=== PATIENT | female | born 1930 | race Caucasian/White ===

== ENCOUNTER 2017-11-08 15:37 | Inpatient (IN) ==
--- NOTE | 2017-11-08 17:58 | ED ---
HPI General Chief complaint: Extremity Injury, Lower Stated complaint: hip pain/dr sent Time Seen by Provider: 11/08/17 17:39 Source: patient, family and old records reviewed Mode of arrival: wheelchair Limitations: no limitations History of Present Illness HPI narrative: 87-year-old female presents to the emergency department with her daughter at bedside. According to daughter, the patient was seen at Dr. Zapata' s office today and was referred to the emergency department. She is to have revision of a left hip surgery tomorrow morning. The daughter, she has had increasing pain and difficulty ambulating. She went to Dr. Zapata today and he stated that the sil in the hip was broken she needed to have surgery. She does have history of hypertension, rheumatoid arthritis, mitral valve prolapse. She is not on anticoagulants and has no bleeding disorders. The patient reports 10/ 10 pain to the right hip, worse with movement. No alleviating factors. She denies any recent trauma. Moderate severity. Onset (ago): week(s) Location: lower extremity Radiation: non-radiation Severity: moderate Severity scale (1-10): 10 Quality: aching Pain Consistency: constant Relieving factors: immobilization Exacerbating factors: movement Associated symptoms: denies other symptoms Treatments prior to arrival: other (on Lortab for pain) Related Data Home Medications Medication Instructions Recorded Confirmed Unable to Obtain Home Meds 11/08/17 11/08/17 Allergies Allergy/AdvReac Type Severity Reaction Status Date / Time cephalexin Allergy Severe Swelling Verified 11/08/17 19:34 penicillin G Allergy Severe Swelling Verified 11/08/17 19:34 Review of Systems ROS Unobtainable All other systems reviewed negative except as stated in HPI PMFSH Medical History Medical History Medical history unknown (Acute) Surgical history unknown (Acute) Social History Social History Second Hand Smoke Exposure: No Smoking Status: Never smoker How Often Do You Have a Drink Containing Alcohol: Never Recent Travel in [place] within the Last 8 Weeks: No Recent Out of Country Travel within the Last 8 Weeks: No Exam Narrative Exam Narrative: GENERAL: Well-nourished, well-developed elderly female patient, afebrile. SKIN: Focused skin assessment warm/dry. No lacerations or abrasions. HEAD: Normocephalic. Atraumatic. EYES: No scleral icterus. No injection or drainage. NECK: Supple, trachea midline. No JVD or lymphadenopathy. CARDIOVASCULAR: Regular rate and rhythm without murmurs, gallops, or rubs. Bilateral pedal pulses 2+ RESPIRATORY: Breath sounds equal bilaterally. No accessory muscle use. Lung sounds are clear to auscultation GASTROINTESTINAL: Abdomen soft, non-tender, nondistended. MUSCULOSKELETAL: No cyanosis, or edema. Right leg is shortened, tenderenss over right hip BACK: No obvious deformity. Course Initial Documented Vital Signs Temperature 98.5 F 11/08/17 16:16 Pulse Rate 58 L 11/08/17 16:16 Respiratory Rate 16 11/08/17 16:16 Blood Pressure 147/65 H 11/08/17 16:16 Pulse Oximetry 96 11/08/17 16:16 Last Documented Vital Signs Temperature 98.5 F 11/08/17 16:16 Pulse Rate 66 11/08/17 19:00 Respiratory Rate 16 11/08/17 19:00 Blood Pressure 178/82 H 11/08/17 19:00 Pulse Oximetry 100 11/08/17 19:00 Medical Decision Making [facility] Narrative Medical decision making narrative: 87 year old female presents to the emergency department, sent by Dr. Zapata, for surgery tomorrow. IV access is obtained. EKG,CBC, CMP, PTT, PT/INR, chest x-ray, x-ray of the right hip with pelvis are ordered and pending. EKG shows sinus bradycardia with PVCs, heart rate 56. CBC shows hgb of 9.9, hct of 31.7. CMP shows bun 33, creatinine of 1.14. PTT is 23.1. PT/INR is 10.7/1.1. Chest x-ray shows mild left base atelectasis and/or infiltrate and tiny effusion. X-ray of the right hip with pelvis shows nonacute subcapital fracture of the right femoral neck and with protruding trochanteric nail tip. Dr. Zapata was notified. He would like pre op labs and cxr to be done before patient is admitted. Patient is to be admitted to hosptalist and npo p ak. Hospitalist is paged for admission. Dr. Baker accepted admission. Differential Diagnosis Differential Diagnosis: fracture of hardware vs. right hip fracture vs. chronic hip pain Lab Data Result diagrams: 11/08/17 18:45 11/08/17 18:45 Lab Results 0711/08/17 11/08/17 Range/Units 18:45 18:45 18:45 WBC 8.7 (4.0-11.0) th/mm3 RBC 3.60 L (4.00-5.30) mil/mm3 Hgb 9.9 L (11.6-15.3) gm/dL Hct 31.7 L (35.0-46.0) % MCV 88.1 (80.0-100.0) fL MCH 27.5 (27.0-34.0) pg MCHC 31.2 L (32.0-36.0) % RDW 21.4 H (11.6-17.2) % Plt Count 292 (150-450) th/mm3 MPV 7.9 (7.0-11.0) fL Neut % (Auto) 75.4 H (16.0-70.0) % Lymph % (Auto) 18.8 (9.0-44.0) % Antelope % (Auto) 5.0 (0.0-8.0) % Eos % (Auto) 0.3 (0.0-4.0) % Baso % (Auto) 0.5 (0.0-2.0) % Neut # (Auto) 6.6 (1.8-7.7) th/mm3 Lymph # (Auto) 1.6 (1.0-4.8) th/mm3 Antelope # (Auto) 0.4 (0.0-0.9) th/mm3 Eos # (Auto) 0.0 (0.0-0.4) th/mm3 Baso # (Auto) 0.0 (0.0-0.2) th/mm3 WBC Differential . Differential Comment Auto diff final PT 10.7 (9.8-11.6) sec INR 1.1 Ratio APTT 23.1 L (24.3-30.1) sec Sodium 137 (136-145) meq/L Potassium 4.2 (3.5-5.1) meq/L Chloride 107 (98-107) meq/L Carbon Dioxide 20.8 L (21.0-32.0) meq/L Anion Gap 9 (5-15) meq/L BUN 33 H (7-18) mg/dL Creatinine 1.14 H (0.50-1.00) mg/dL Estimated GFR 45 L (>89) mL/min Random Glucose 102 (74-106) mg/dL Calcium 9.3 (8.5-10.1) mg/dL Total Bilirubin 0.2 (0.2-1.0) mg/dL AST 27 (15-37) U/L ALT 33 (10-53) U/L Alkaline Phosphatase 87 (45-117) U/L Total Protein 6.7 (6.4-8.2) g/dL Albumin 3.1 L (3.4-5.0) g/dL Imaging Data Radiologist's impression: ITS Impressions Chest X-Ray 11/08/17 17:49 CONCLUSION: Mild consolidation and tiny effusion at the left lung base. Hip X-Ray 11/08/17 18:51 CONCLUSION: Nonacute subcapital fracture of the right femoral neck and with protruding trochanteric nail tip. Discharge Plan Discharge Disposition Patient Disposition: 30 Still Patient Discharge Details Diagnosis: Closed subcapital fracture of femur Physicians Team ED Provider: Naresh Loja ED Midlevel Provider: Loyda Noguera Primary Care Provider: Venancio Bautista Rxs /Orders / Referrals /Forms Prescriptions: No Action Unable to Obtain Home Meds RF: 0 Status ED Status: With Doctor
--- NOTE | 2017-11-08 18:57 | XR ---
EXAM DATE: 11/08/2017 6:49 PM EDT AGE/SEX: 87 years / Female INDICATIONS: Evaluate for pneumonia, pneumothorax, or communicable diseases. CLINICAL DATA: This is the patient's initial encounter. Patient reports that signs and symptoms have been present for 1 day and indicates a pain score of 0/10. MEDICAL/SURGICAL HISTORY: None. None. COMPARISON: No prior exams available for comparison. FINDINGS: There is mild left base atelectasis and/or infiltrate and tiny effusion. Right lung clear. No pneumot horax. Calcified lymph nodes and right base benign granuloma noted. Normal heart size. CONCLUSION: Mild consolidation and tiny effusion at the left lung base. Electronically signed by: Fox Walter MD 11/08/2017 6:56 PM EDT
--- NOTE | 2017-11-08 19:08 | XR ---
EXAM DATE: 11/08/2017 7:02 PM EDT AGE/SEX: 87 years / Female INDICATIONS: Patient complains of right hip pain. No known injury. CLINICAL DATA: This is the patient's initial encounter. Patient reports that signs and symptoms have been present for 1 day and indicates a pain score of 4/10. MEDICAL/SURGICAL HISTORY: None. . Right hip ORIF. COMPARISON: No prior exams available for comparison. FINDINGS: Patient has had previous nail and sil fixation of a right intertrochanteric fracture. Femoral head ryan s slipped off of the trochanteric nail. The tip of the nail is near the superior margin of the acetab ulum and with some associated chronic bony remodeling. The hardware is intact. CONCLUSION: Nonacute subcapital fracture of the right femoral neck and with protruding trochanteric nail tip. Electronically signed by: Fox Walter MD 11/08/2017 7:07 PM EDT
[2017-11-08 19:39] LABS: Baso % (Auto) 0.5 % (0.0-2.0); Eos % (Auto) 0.3 % (0.0-4.0); Hematocrit 31.7 % (35.0-46.0); Hemoglobin 9.9 gm/dL (11.6-15.3); Lymph # (Auto) 1.6 th/mm3 (1.0-4.8); Lymph % (Auto) 18.8 % (9.0-44.0); Mean Corpuscular HGB Conc 31.2 % (32.0-36.0); Mean Corpuscular Hemoglobin 27.5 pg (27.0-34.0); Mean Corpuscular Volume 88.1 fL (80.0-100.0); Mean Platelet Volume 7.9 fL (7.0-11.0); Mono # (Auto) 0.4 th/mm3 (0.0-0.9); Neut # (Auto) 6.6 th/mm3 (1.8-7.7); Neut % (Auto) 75.4 % (16.0-70.0); Platelet Count 292 th/mm3 (150-450); Red Cell Distribution Width 21.4 % (11.6-17.2); White Blood Count 8.7 th/mm3 (4.0-11.0)
[2017-11-08 19:49] LABS: Activated Partial Thrombo Time 23.1 sec (24.3-30.1); INR 1.1 Ratio; Prothrombin Time 10.7 sec (9.8-11.6)
[2017-11-08 20:00] LABS: Albumin 3.1 g/dL (3.4-5.0); Anion Gap 9 meq/L (5-15); Aspartate Aminotransferase 27 U/L (15-37); Blood Urea Nitrogen 33 mg/dL (7-18); Calcium 9.3 mg/dL (8.5-10.1); Carbon Dioxide 20.8 meq/L (21.0-32.0); Chloride 107 meq/L (98-107); Glomerular Filtration Rate 45 mL/min (>89); Glucose,Random 102 mg/dL (74-106); Potassium 4.2 meq/L (3.5-5.1); Sodium 137 meq/L (136-145)
[2017-11-08 20:01] LABS: Alanine Aminotransferase 33 U/L (10-53)
[2017-11-08 20:03] LABS: Alkaline Phosphatase 87 U/L (45-117); Total Protein 6.7 g/dL (6.4-8.2)
--- NOTE | 2017-11-08 21:14 | ECG ---
Date Performed: 11/08/2017 Time Performed: 18:46:31 PTAGE: 87 years EKG: SINUS BRADYCARDIA WITH FREQUENT VENTRICULAR PREMATURE COMPLEXES ABNORMAL RHYTHM ECG Compare d to prior electrocardiogram, PVCs are now present. DOCTOR: Ugo Marie Interpretating Date/Time 11/08/2017 21:12:19
[2017-11-08] MEDS ORDERED: Acetaminophen 325 MG Tablet PO PRN (22:30)
[2017-11-08] MEDS ORDERED: Morphine Inj 4 MG/ML Vial IV.PUSH PRN (22:30)
[2017-11-08] MEDS ORDERED: Naloxone Inj 0.4 MG/ML Vial IV.PUSH PRN (22:30)
[2017-11-09] MEDS ORDERED: Docusate Sodium 100 MG Capsule PO PRN (08:12)
[2017-11-09] MEDS ORDERED: Naloxone Inj 0.4 MG/ML Vial IV.PUSH PRN (08:14)
[2017-11-09] MEDS: Senna/Docusate Sodium 8.6/50 MG Tablet PO SCH (09:14)
[2017-11-09] MEDS ORDERED: Dexamethasone Inj 20 MG/5 ML Vial IV.PUSH SCH (10:53)
[2017-11-09] MEDS ORDERED: Vancomycin Inj 1 GM/200 ML PIGGYBACK IV.SIG SCH (11:00)
[2017-11-09] MEDS ORDERED: SODIUM CHLOR 0.9% IV.SIG SCH (11:00)
[2017-11-09] MEDS ORDERED: TRANEXAMIC ACID IV.SIG SCH (11:00)
[2017-11-09] MEDS ORDERED: Sodium Chlor 0.9% Inj 40 ML, Bupivacaine Liposo PF 1.3% Inj 20 ML P-ARTICULR SCH ×2 (11:00)
[2017-11-09] MEDS ORDERED: Chlorhexidine 4% Topical 120 APPLIC/120 ML Bottle TOPICAL SCH (11:00)
[2017-11-09] MEDS ORDERED: Ketamine Inj 50 MG/5 ML Syringe IV.PUSH ONE (11:23)
[2017-11-09] MEDS ORDERED: ceFAZolin 2 GM Premix Inj 2 GM/50 ML PIGGYBACK IV.SIG ONE (12:01)
[2017-11-09] MEDS ORDERED: Albumin Human 25% Inj 100 ML IV.SIG ONE (12:39)
[2017-11-09] MEDS ORDERED: Chlorhexidine Gluconate 2% 1 Pack (2 Cloths) TOPICAL SCH (12:45)
[2017-11-09] MEDS ORDERED: Metoprolol Tartrate 25 MG Tablet PO SCH (12:45)
[2017-11-09] MEDS ORDERED: Sodium Chlor 0.9% Inj 500 ML IV.SIG SCH (13:00)
[2017-11-09] MEDS ORDERED: Morphine Inj 4 MG/ML Vial IV.PUSH PRN (14:08)
[2017-11-09] MEDS ORDERED: Aluminum/Magnesium/Simethacone Susp 30 ML UDC PO PRN (14:08)
[2017-11-09] MEDS ORDERED: Post-op Orders (for Pharmacy) OTHER STA (14:08)
--- NOTE | 2017-11-09 14:20 | P.OP ---
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 My BOTTOM HOOP DRIVER presence was necessary throughout this case for the manipulation and positioning of the surgical extremity. My BOTTOM HOOP DRIVER was assisting me throughout the duration of this procedure. The skill set of an Advance Registered Nurse Practitioner was medically necessary to complete this procedure. During the surgical case, the surgical services manager was working at the back table and the Advance Registered Nurse Practitioner was directly assisting me. Estimated blood loss (mL): 400 Operation and Findings: IMPLANT DESCRIPTION: 1. Langeloth Gription Cup, acetabular size 48. 2. Langeloth AltrX polyethylene +4, 10 degree, 32. 4. Corail revision long femoral stem size 10, no collar, standard offset. 5. Femoral head/neck metal, 32, +1. ESTIMATED BLOOD LOSS: 400 cc. JUSTIFICATION FOR PROCEDURE: This patient had a failed intramedullary nail fixation of a femoral neck/ basicervical fracture. There was displacement of the fracture with the screw eroding into the acetabulum. She understood the risks and benefits of surgical management. She was admitted to the hospital yesterday and had preoperative clearance. We are going to move forward with removal of all of the hardware with conversion of previous surgery to total hip arthroplasty. PROCEDURE: The patient was brought back to the operative theatre. Adequate anesthesia was obtained. The patient received intravenous vancomycin and Ancef. Note the patient had a test dose of Ancef and did not have a reaction. The patient was carefully placed on the operative table in the lateral decubitus position with an axillary roll and a well-padded down leg. The lower extremity was prepped and draped in the usual sterile fashion. We proceeded with a standard curvilinear incision centered around the tip of the greater trochanter. We extended this incision a little more distal than typical. We then dissected through the deep fascia and placed a Charnley retractor protecting the sciatic nerve. The greater trochanteric bursa was reflected. We then incised through the piriformis attachment and tagged this with a #2 FiberWire. We then incised through the capsule in a T-shaped fashion and tagged this with a #2 FiberWire as well. We identified the proximal aspect of the nail by reflecting the deep capsular region over the top of the nail. We were careful to not disturb the abductor tendons. We identified the lateral portion of the screw that was going into the femoral head. We backed off the set screw proximally. We then removed the lag screw without problem. We removed the locking screw distally in the femoral shaft. We then removed the intramedullary device without problem. We did not see any signs of infection. We thoroughly irrigated. The hardware did not have specific failure. The failure was at the femoral neck. We identified displaced nonhealed femoral neck fracture. We removed remnants of the neck. There was no significant remaining calcar. The lesser trochanter was intact. We did see when she will white bring into the acetabulum from the screw. This was of a mild to moderate degree in the superior aspect. There was some other diffuse chondromalacia. The remnants of the labrum were removed. We then sequentially reamed the acetabulum. We trialed the hip. We placed the final cup into the appropriate inclination and anteversion. We placed the manhole cover. We then placed the polyethylene with the elevated liner in the posterior superior aspect. The proximal femur was prepared with with a rondure and then we did first hand reaming into the shaft. This was followed by placing a ball-tipped guidewire down to the distal end of the femur and then sequentially reaming up to a size 13. We then broached the proximal body. We calcar planed the proximal femur and irrigated removing any remnants of the bone. We trialed the hip with the longer revision corail stem broach in place. The final femoral stem was impacted into position. We used the rotation of the leg to help determine the appropriate rotation for the final prosthesis. The final prosthesis was a collared prosthesis. Leg lengths were evaluated. We evaluated stability of the hip with the hip in the "position of sleep" and the hip flexed up to 90 and internally rotated. We additionally tested both a "shuck" test and hip extension, confirming there was no undue tension while flexing the knee to 90 during full hip extension. The final stem had very good fit with no sign of instability. The final head was impacted and the hip was reduced. Once again we irrigated. We then repaired the capsule and the piriformis with the FiberWire suture. The deep fascia was closed with a #2 Stratafix, followed by 2-0 Vicryl in the skin and lizandro. The post-op plan is to weight-bear as tolerated. We will follow posterior total hip precautions, including the use of a canvas knee splint. DVT prophylaxis will be performed with SCDs, SANTI hose, early mobilization, and Lovenox followed by aspirin.
[2017-11-09] MEDS ORDERED: fentaNYL Citrate Inj 100 MCG/2 ML Ampul ONE (14:43)
[2017-11-09] MEDS ORDERED: Morphine Inj 4 MG/ML Vial ONE (14:44)
[2017-11-09] MEDS ORDERED: Tranexamic Acid Inj 1,000 MG in Sodium Chlor 0.9% Inj 100 ML IV.SIG SCH (15:00)
[2017-11-09] MEDS: Sod Chloride 0.9% Inj 1,000 ML IV.CONT SCH (15:42)
--- NOTE | 2017-11-09 16:09 | XR ---
EXAM DATE: 11/09/2017 3:53 PM EDT AGE/SEX: 87 years / Female INDICATIONS: Rt Hip ORIF. Post-op. CLINICAL DATA: This is the patient's subsequent encounter. Patient reports that signs and symptoms h ave been present for 2 days and indicates a pain score of Nonresponsive. MEDICAL/SURGICAL HISTORY: None. . RT Hip ORIF. COMPARISON: [facility], HIP RIGHT W AP PELVIS 2V, 11/08/2017. . FINDINGS: Right hip arthroplasty is in satisfactory position. The alignment is anatomic. CONCLUSION: Postsurgical changes as above. Electronically signed by: Jay Briseno MD 11/09/2017 4:08 PM EDT
--- NOTE | 2017-11-09 16:56 | P.HP ---
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 She has been complaining of right hip pain especially with activity and difficulty ambulating since she had surgery in March 2017. No recent fall. She was seen by her orthopedist yesterday and was referred to the emergency department for surgical repair. She underwent right hip removal of implant deep open (intramedullary nail and screw) with conversion of previous surgery to total hip arthroplasty. Patient is seen in the recovery room, she is awake. She has early dementia and hard of hearing so history mainly taken from her daughter. Discussed with recovery room nurse, patient has been hemodynamically stable received 1350 mL crystalloid and EBL of 400 mL. All other systems reviewed negative Inpatient Certification: I certify that the inpatient services were ordered in accordance with Medicare regulations governing the order. This includes certification that hospital inpatient services are reasonable and necessary and in the case of services not specified as inpatient-only under 42 CFR 419.22(n), that they are appropriately provided as inpatient services in accordance to with the 2-midnight benchmark under 43 CFR 412.3(e) Estimated Total Length of Stay (Days): 3 Plans for Post Hospital Care: SNF Review of Systems All other systems reviewed negative except as stated in HPI PMFSH - History History Provided By: Patient, Family Member - Medical History Medical History: Medical History (Last Updated 11/09/17 @ 16:55 by Tushar Oliveira MD) Cervical vertebral fusion (Acute) Hx of hysterectomy (Acute) Rheumatoid arthritis (Acute) Depression (Acute) Anxiety (Acute) Hypertension (Acute) Mitral regurgitation - Surgical History Surgical History: Surgical History (Last Updated 11/09/17 @ 16:44 by Tushar Oliveira MD) Hx of joint replacement (Acute) History of total right hip replacement (Acute) Hx of appendectomy (Acute) - Family History Family History: Family History (Last Updated 11/09/17 @ 16:45 by Tushar Oliveira MD) Other Family history non-contributory - Tobacco History Second Hand Smoke Exposure: No Smoking Status: Never smoker - Alcohol History How Often Do You Have a Drink Containing Alcohol: Never - Substance Use History Substance History: No History of Abuse - Travel History Recent Travel in the [place] Within the Last 8 Weeks: No Recent Travel Out of the Country Within the Last 8 Weeks: No - Immunization History Tetanus Immunization: Unable to Assess Hx Influenza Vaccine This Season: Unable to Assess Medications and Allergies Allergies Allergy/AdvReac Type Severity Reaction Status Date / Time cephalexin Allergy Severe Swelling Verified 11/08/17 19:34 penicillin G Allergy Severe Swelling Verified 11/08/17 19:34 Home Medications Medication Instructions Recorded Confirmed Type Unable to Obtain Home Meds 11/08/17 11/08/17 History Exam Vital signs: Vital Signs 11/08/17 19:00 11/08/17 21:00 11/08/17 22:59 Temperature Pulse Rate 66 62 Respiratory Rate 16 16 16 Blood Pressure 178/82 H 179/79 H Pulse Oximetry 100 98 11/09/17 00:00 11/09/17 06:43 11/09/17 07:00 Temperature 97.3 F L 97.9 F Pulse Rate 55 L 54 L Respiratory Rate 16 18 18 Blood Pressure 182/79 H 135/62 Pulse Oximetry 95 95 11/09/17 08:00 11/09/17 14:37 11/09/17 14:45 Temperature 98.1 F 97.6 F Pulse Rate 55 L 90 84 Respiratory Rate 18 14 14 Blood Pressure 144/65 H 108/52 L 99/46 L Pulse Oximetry 98 99 99 11/09/17 15:00 11/09/17 15:15 11/09/17 15:30 Temperature Pulse Rate 80 100 H 88 Respiratory Rate 14 14 14 Blood Pressure 87/46 L 125/58 L 110/53 L Pulse Oximetry 97 98 98 11/09/17 15:45 Temperature Pulse Rate 100 H Respiratory Rate 14 Blood Pressure 104/55 L Pulse Oximetry 98 Intake & Output 11/08/17 11/09/17 11/09/17 18:59 06:59 18:59 Intake Total 0 / 0 2300 / 2300 Output Total 0 / 0 400 / 400 Balance 0 / 0 1900 / 1900 Weight 43.091 kg 42.2 kg Intake: IV 1000 / 1000 LR 1000 mL Inj 1,000 ML @ 50 1000 / 1000 mls/hr IV.CONT .Q20H [facility] Rx#: [id number] Oral 0 / 0 Anesthesia Amount 1300 / 1300 Output: Urine 0 / 0 Estimated Blood Loss 400 / 400 Other: # Voids 1 Weight On Admission 42.2 kg Narrative: GENERAL: Well-developed and well-nourished in no distress. She is hard of hearing SKIN: Warm and dry. HEAD: Atraumatic. Normocephalic. EYES: Pupils equal and round. No scleral icterus. No injection or drainage. ENT: No nasal bleeding or discharge. Mucous membranes pink and moist. NECK: Trachea midline. No JVD. CARDIOVASCULAR: Regular rate and rhythm. RESPIRATORY: No accessory muscle use. Clear to auscultation. Breath sounds equal bilaterally. GASTROINTESTINAL: Abdomen soft, non-tender, nondistended. MUSCULOSKELETAL: Right lower extremity in a immobilizer. NEUROLOGICAL: Awake and alert. No obvious cranial nerve deficits. Results - Labs CBC & Chem 7: 11/08/17 18:45 11/08/17 18:45 Labs: Laboratory Results - last 24 hr 11/08/17 11/08/17 11/08/17 18:45 18:45 18:45 WBC 8.7 RBC 3.60 L Hgb 9.9 L Hct 31.7 L MCV 88.1 MCH 27.5 MCHC 31.2 L RDW 21.4 H Plt Count 292 MPV 7.9 Neut % (Auto) 75.4 H Lymph % (Auto) 18.8 Valencia % (Auto) 5.0 Eos % (Auto) 0.3 Baso % (Auto) 0.5 Neut # (Auto) 6.6 Lymph # (Auto) 1.6 [place] # (Auto) 0.4 Eos # (Auto) 0.0 Baso # (Auto) 0.0 WBC Differential . Differential Comment Auto diff final PT 10.7 INR 1.1 APTT 23.1 L Sodium 137 Potassium 4.2 Chloride 107 Carbon Dioxide 20.8 L Anion Gap 9 BUN 33 H Creatinine 1.14 H Estimated GFR 45 L Random Glucose 102 Calcium 9.3 Total Bilirubin 0.2 AST 27 ALT 33 Alkaline Phosphatase 87 Total Protein 6.7 Albumin 3.1 L Blood Type Antibody Screen 11/09/17 11:32 WBC RBC Hgb Hct MCV MCH MCHC RDW Plt Count MPV Neut % (Auto) Lymph % (Auto) Valencia % (Auto) Eos % (Auto) Baso % (Auto) Neut # (Auto) Lymph # (Auto) Valencia # (Auto) Eos # (Auto) Baso # (Auto) WBC Differential Differential Comment PT INR APTT Sodium Potassium Chloride Carbon Dioxide Anion Gap BUN Creatinine Estimated GFR Random Glucose Calcium Total Bilirubin AST ALT Alkaline Phosphatase Total Protein Albumin Blood Type A Positive Antibody Screen Negative - Imaging Impressions Chest X-Ray 11/08/17 17:49 CONCLUSION: Mild consolidation and tiny effusion at the left lung base. Hip X-Ray 11/08/17 18:51 CONCLUSION: Nonacute subcapital fracture of the right femoral neck and with protruding trochanteric nail tip. Hip X-Ray 11/09/17 00:00 CONCLUSION: Postsurgical changes as above. Caprini VTE Risk Assessment Caprini VTE Risk Assessment: Moderate/High Risk (score >= 2) Caprini Risk Assessment Model: Point Value = 1 Point Value = 2 Point Value = 3 Point Value = 5 Age 41-60 Minor surgery BMI > 25 kg/m2 Swollen legs Varicose veins or History of unexplained or recurrent spontaneous Oral contraceptives or hormone replacement Sepsis (< 1 month) Serious lung disease, including pneumonia (< 1 month) Abnormal pulmonary function Acute myocardial infarction Congestive heart failure (< 1 month) History of inflammatory bowel disease Medical patient at bed rest Age 61-74 Arthroscopic surgery Major open surgery (> 45 min) Laparoscopic surgery (> 45 min) Malignancy Confined to bed (> 72 hours) Immobilizing plaster cast Central venous access Age >= 75 History of VTE Family history of VTE Factor V Leiden Prothrombin [id number] Lupus anticoagulant Anticardiolipin antibodies Elevated serum homocysteine Heparin-induced thrombocytopenia Other congenital or acquired thrombophilia Stroke (< 1 month) Elective arthroplasty Hip, pelvis, or leg fracture Acute spinal cord injury (< 1 month) Prophylaxis Regimen: Total Risk Factor Score Risk Level Prophylaxis Regimen 0-1 Low Early ambulation 2 Moderate Order ONE of the following: *Sequential Compression Device (SCD) *Heparin 5000 units SQ BID 3-4 Higher Order ONE of the following medications: *Heparin 5000 units SQ TID *Enoxaparin/Lovenox 40 mg SQ daily (WT < 150 kg, CrCl > 30 mL/min) *Enoxaparin/Lovenox 30 mg SQ daily (WT < 150 kg, CrCl > 10-29 mL/min) *Enoxaparin/Lovenox 30 mg SQ BID (WT < 150 kg, CrCl > 30 mL/min) AND/OR *Sequential Compression Device (SCD) 5 or more Highest Order ONE of the following medications: *Heparin 5000 units SQ TID (Preferred with Epidurals) *Enoxaparin/Lovenox 40 mg SQ daily (WT < 150 kg, CrCl > 30 mL/min) *Enoxaparin/Lovenox 30 mg SQ daily (WT < 150 kg, CrCl > 10-29 mL/min) *Enoxaparin/Lovenox 30 mg SQ BID (WT < 150 kg, CrCl > 30 mL/min) AND *Sequential Compression Device (SCD) Assessment and Plan - Plan This is a 87-year-old female with a 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 Patient is stable continue postoperative care with physical therapy, wound care, DVT prophylaxis with Lovenox, incentive spirometry and pain management with Lortab and IV morphine. Repeat CBC in the morning to monitor for postoperative anemia. She has baseline anemia hemoglobin of 9.9 Hypertension. EKG tracing interpreted by me with sinus bradycardia with PVC. Stable continue home medications when confirmed, daughter is not able to recall patient's medication. Meanwhile will give as needed IV Vasotec and clonidine Anxiety and depression. Restart home medication once confirmed. Nursing staff instructed to verify home meds Rheumatoid arthritis. Again restart home medications but will hold Humira and methotrexate for now. She also has dementia and hard of hearing which makes communication difficult. Chronic kidney disease. Avoid nephrotoxins. Currently on IV fluids. Repeat BMP in the morning Discharge Planning: Rehab versus home health care
--- NOTE | 2017-11-09 17:08 | P.PNADD ---
Addendum to Inpatient Note Reason for Addendum: Corrected Documentation (CXR with left base mild consolidation and tiny effusion. No resp sxs. IS and nebs likely atelectasis monitor for infection)
[2017-11-09] MEDS ORDERED: Lidocaine PF 1% Inj 5 ML Syringe INFILTRATN ONE (17:59)
[2017-11-09] MEDS ORDERED: Neostigmine Inj 5 MG/5 ML Syringe IV.PUSH ONE (17:59)
[2017-11-09] MEDS ORDERED: Phenylephrine/NS 1000 MCG/10ML Syringe IV.PUSH ONE (17:59)
[2017-11-09] MEDS ORDERED: hydrALAZINE HCl Inj 20 MG/ML Vial IV.PUSH ONE (17:59)
[2017-11-09] MEDS ORDERED: Glycopyrrolate Inj 1 MG/5 ML Syringe IV.PUSH ONE (17:59)
[2017-11-10 05:14] LABS: Hematocrit 22.4 % (35.0-46.0); Hemoglobin 7.2 gm/dL (11.6-15.3)
[2017-11-10] MEDS: Senna/Docusate Sodium 8.6/50 MG Tablet PO SCH ×3 (05:19→23:59)
[2017-11-10] MEDS: Multivitamin/Minerals Therapeutic Tablet PO SCH ×2 (05:19→21:19)
[2017-11-10 05:35] LABS: Carbon Dioxide 19.1 meq/L (21.0-32.0); Magnesium 1.8 mg/dL (1.5-2.5); Potassium 4.5 meq/L (3.5-5.1)
[2017-11-10 05:55] LABS: Creatine Kinase MB 6.5 ng/mL (0.5-3.6)
[2017-11-10] MEDS ORDERED: Dexamethasone Inj 20 MG/5 ML Vial IV.PUSH ONE (08:00)
[2017-11-10] MEDS ORDERED: Sodium Chlor 0.9% Inj 250 ML IV.SIG SCH (09:00)
--- NOTE | 2017-11-10 11:34 | P.PN ---
Subjective Interval history: Follow-up hip surgery. Patient has no complaints she is awake and oriented to person and place. Does not remember she had surgery yesterday. She has history of memory loss Physical Exam Vital signs: Vital Signs 11/09/17 14:37 11/09/17 14:45 11/09/17 15:00 Temperature 97.6 F Pulse Rate 90 84 80 Respiratory Rate 14 14 14 Blood Pressure 108/52 L 99/46 L 87/46 L Pulse Oximetry 99 99 97 11/09/17 15:15 11/09/17 15:30 11/09/17 15:45 Temperature Pulse Rate 100 H 88 100 H Respiratory Rate 14 14 14 Blood Pressure 125/58 L 110/53 L 104/55 L Pulse Oximetry 98 98 98 11/09/17 16:00 11/09/17 16:30 11/09/17 17:00 Temperature Pulse Rate 96 H 93 H 77 Respiratory Rate 12 12 14 Blood Pressure 110/58 L 115/56 L 100/49 L Pulse Oximetry 98 94 L 98 11/09/17 17:30 11/09/17 20:50 11/10/17 00:05 Temperature 97.6 F 97.2 F L 97.5 F L Pulse Rate 77 97 H 96 H Respiratory Rate 12 18 18 Blood Pressure 105/50 L 97/67 L 126/58 L Pulse Oximetry 98 96 98 11/10/17 01:30 11/10/17 04:00 Temperature 98.1 F Pulse Rate 85 Respiratory Rate 15 18 Blood Pressure 131/62 Pulse Oximetry 98 Intake & Output 11/09/17 11/10/17 11/10/17 18:59 06:59 18:59 Intake Total 2400 / 2400 120 / 120 Output Total 400 / 400 Balance 1999 / 1999 120 / 120 Intake: IV 1100 / 1100 LR 1000 mL Inj 1,000 ML @ 50 1000 / 1000 mls/hr IV.CONT .Q20H [facility] Rx#: [id number] Ancef Inj 1,000 MG In NS Inj 100 / 100 100 ML @ 200 mls/hr IV.SIG Q6H [facility]IS Rx#:[id number] Oral 120 / 120 Anesthesia Amount 1300 / 1300 Output: Estimated Blood Loss 400 / 400 Other: # Voids 4 # Bowel Movements 0 Narrative: GENERAL: Well-developed and well-nourished in no distress. She is hard of hearing SKIN: Warm and dry. CARDIOVASCULAR: Regular rate and rhythm. RESPIRATORY: No accessory muscle use. Clear to auscultation. Breath sounds equal bilaterally. GASTROINTESTINAL: Abdomen soft, non-tender, nondistended. MUSCULOSKELETAL: Right lower extremity in a immobilizer. NEUROLOGICAL: Awake and alert. No obvious cranial nerve deficits. Results - Labs CBC & Chem 7: 11/10/17 04:20 11/10/17 04:20 Laboratory Results - last 24 hr 11/09/17 11/10/17 11/10/17 11:32 04:20 04:20 Hgb 7.2 L D Hct 22.4 L Sodium 143 Potassium 4.5 Chloride 110 H Carbon Dioxide 19.1 L Anion Gap 14 BUN 30 H Creatinine 1.75 H Estimated GFR 28 L Random Glucose 117 H Calcium 9.0 Magnesium 1.8 Total Creatine Kinase 659 H CK-MB (CK-2) 6.5 H CK-MB (CK-2) % 1.0 Blood Type A Positive Antibody Screen Negative MTS Gel Crossmatch 11/10/17 08:02 Hgb Hct Sodium Potassium Chloride Carbon Dioxide Anion Gap BUN Creatinine Estimated GFR Random Glucose Calcium Magnesium Total Creatine Kinase CK-MB (CK-2) CK-MB (CK-2) % Blood Type Antibody Screen MTS Gel Crossmatch See Detail - Imaging Impressions Hip X-Ray 11/09/17 00:00 CONCLUSION: Postsurgical changes as above. 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 Patient is stable continue postoperative care with physical therapy, wound care, DVT prophylaxis with Lovenox, incentive spirometry and pain management with Lortab and IV morphine. Acute on chronic anemia secondary to acute blood loss. Transfuse 1 unit packed RBC times 1 repeat H&H in the morning Hypertension. EKG tracing interpreted by me with sinus bradycardia with PVC. Stable will hold BP medication secondary to anemia consider restarting tomorrow. Give as needed IV Vasotec and clonidine Anxiety and depression. Restart home medication once confirmed. Nursing staff instructed to verify home meds Rheumatoid arthritis. Restart prednisone but will hold Humira She also has dementia and hard of hearing which makes communication difficult. Chronic kidney disease. Creatinine slightly worse. Avoid nephrotoxins. Currently on IV fluids. Repeat BMP in the morning XR with left base mild consolidation and tiny effusion. No resp sxs. IS and nebs likely atelectasis monitor for infection) Discharge Planning: Rehab versus home health care pending PT
[2017-11-10] MEDS: Enoxaparin Inj 40 MG/0.4 ML Syringe SQ SCH (14:58)
--- NOTE | 2017-11-10 19:19 | P.DCO ---
- Physical Therapy Physical Therapy: Gait training, Transfer training, bed to chair Hip: Total hip Right Lower Extremity Weight Bearing: Weight bearing as tolerated Right Lower Extremity Range of Motion: Active ROM - Nursing Nursing: Joelle gutierrez Dressing changes: Do not change dressing Additional instructions: First dressing change in the office - Certification Need for Home Health services: I have seen patient Ann-Marie Alberto on 11/10/17. My clinical findings support the need for the requested home health care services because: Need for Home Health Services: Deconditioned with increased weakness, High risk of falls Homebound Certification: I certify that my clinical findings support that this patient is homebound because: Homebound Certification: Post-op weakness, Unsteady gait/balance
--- NOTE | 2017-11-10 19:28 | P.PNOP ---
Subjective Interval history: The patient is resting comfortably in bed with minimal pain to the right hip. Patient states the hip feels better than before surgery. Physical Exam Vital signs: Vital Signs 11/09/17 20:50 11/10/17 00:05 11/10/17 01:30 Temperature 97.2 F L 97.5 F L Pulse Rate 97 H 96 H Respiratory Rate 18 18 15 Blood Pressure 97/67 L 126/58 L Pulse Oximetry 96 98 11/10/17 04:00 11/10/17 08:00 11/10/17 12:00 Temperature 98.1 F 97.6 F 98.5 F Pulse Rate 85 89 85 Respiratory Rate 18 18 18 Blood Pressure 131/62 148/82 H 147/72 H Pulse Oximetry 98 95 92 L 11/10/17 16:07 11/10/17 16:23 Temperature 98.5 F 97.6 F Pulse Rate 83 81 Respiratory Rate 20 20 Blood Pressure 137/65 120/59 L Pulse Oximetry 95 Intake & Output 11/10/17 11/10/17 11/11/17 06:59 18:59 06:59 Intake Total 120 / 120 0 / 0 Balance 120 / 120 0 / 0 Intake: Oral 120 / 120 Intake (Blood Product) Amt 0 / 0 Rbc As-3 Leukoreduced Unit 0 / 0 [id number] Other: # Voids 4 # Bowel Movements 0 Narrative: The patient's dressing is C/D/I. EHL/TA/G intact. 2+ pedal pulse. Calf is soft and nontender. CKS in place. + SILT distally. - Constitutional no acute distress - Routine HEENT Exam Head: Present: normocephalic Eye: Present: PERRL ENT: Present: mucous membranes moist Results - Labs CBC & Chem 7: 11/10/17 04:20 11/10/17 04:20 Laboratory Results - last 24 hr 11/10/17 11/10/17 11/10/17 04:20 04:20 08:02 Hgb 7.2 L D Hct 22.4 L Sodium 143 Potassium 4.5 Chloride 110 H Carbon Dioxide 19.1 L Anion Gap 14 BUN 30 H Creatinine 1.75 H Estimated GFR 28 L Random Glucose 117 H Calcium 9.0 Magnesium 1.8 Total Creatine Kinase 659 H CK-MB (CK-2) 6.5 H CK-MB (CK-2) % 1.0 MTS Gel Crossmatch See Detail - Procedures right hip removal of implant deep open (intramedullary nail and screw) with conversion of previous surgery to total hip arthroplasty Assessment and Plan - Ortho Post Op Day # 1 - Problem List (1) Closed subcapital fracture of femur Code(s): S72.019A - Unspecified intracapsular fracture of unspecified femur, initial encounter for closed fracture Status: Acute Qualifiers: Encounter type: initial encounter Laterality: right Qualified Code(s): S72.011A - Unspecified intracapsular fracture of right femur, initial encounter for closed fracture (2) History of total right hip replacement Code(s): Z96.641 - Presence of right artificial hip joint Status: Acute - Assessment and Plan 1. WBAT RLE 2. Lovenox followed by ASA for DVT prophylaxis 3. Ice to the RLE PRN 4. No dressing changes. First dressing change in the office. 5. Anticipatory discharge to [facility] on Tuesday or Tuesday. 6. F/U in the office with Dr. Zapata or SARAH Moctezuma as previously scheduled.
[2017-11-10] MEDS: Sod Chloride 0.9% Inj 1,000 ML IV.CONT SCH (23:59)
[2017-11-11] MEDS: Multivitamin/Minerals Therapeutic Tablet PO SCH ×2 (00:02→08:51)
[2017-11-11 07:12] LABS: Hematocrit 23.3 % (35.0-46.0); Hemoglobin 7.6 gm/dL (11.6-15.3)
[2017-11-11 07:31] LABS: Calcium 8.7 mg/dL (8.5-10.1); Carbon Dioxide 26.8 meq/L (21.0-32.0); Magnesium 2.5 mg/dL (1.5-2.5); Potassium 4.1 meq/L (3.5-5.1)
[2017-11-11] MEDS: Sod Chloride 0.9% Inj 1,000 ML IV.CONT SCH (08:37)
[2017-11-11] MEDS: Senna/Docusate Sodium 8.6/50 MG Tablet PO SCH (08:50)
[2017-11-11] MEDS ORDERED: predniSONE 5 MG Tablet PO SCH (09:00)
[2017-11-11] MEDS ORDERED: Calcium Carbonate 500 MG Tablet PO SCH (09:00)
[2017-11-11] MEDS ORDERED: Famotidine 20 MG Tablet PO SCH (09:00)
[2017-11-11] MEDS ORDERED: amLODIPine 5 MG Tablet PO SCH (09:00)
--- NOTE | 2017-11-11 11:58 | P.PN ---
Subjective Interval history: Follow-up anemia. Patient with no new complaints. BP elevated restarted home med Norvasc Physical Exam Vital signs: Vital Signs 11/10/17 12:00 11/10/17 16:07 11/10/17 16:23 Temperature 98.5 F 98.5 F 97.6 F Pulse Rate 85 83 81 Respiratory Rate 18 20 20 Blood Pressure 147/72 H 137/65 120/59 L Pulse Oximetry 92 L 95 11/10/17 20:00 11/10/17 23:13 11/11/17 03:23 Temperature 97.5 F L 97.3 F L 97.1 F L Pulse Rate 77 69 76 Respiratory Rate 18 17 17 Blood Pressure 161/64 H 171/74 H 188/78 H Pulse Oximetry 96 96 94 L 11/11/17 08:00 Temperature 97.8 F Pulse Rate 74 Respiratory Rate 18 Blood Pressure 151/72 H Pulse Oximetry 96 Intake & Output 11/10/17 11/11/17 11/11/17 18:59 06:59 18:59 Intake Total 0 / 0 240 / 240 Balance 0 / 0 240 / 240 Weight 47.1 kg Intake: Oral 240 / 240 Intake (Blood Product) Amt 0 / 0 Rbc As-3 Leukoreduced Unit 0 / 0 [id number] Other: # Voids 1 # Urine Diapers 2 Date of Last Bowel Movement 11/10/17 # Bowel Movements 0 Narrative: GENERAL: Well-developed and well-nourished in no distress. She is hard of hearing SKIN: Warm and dry. CARDIOVASCULAR: Regular rate and rhythm. RESPIRATORY: No accessory muscle use. Clear to auscultation. Breath sounds equal bilaterally. GASTROINTESTINAL: Abdomen soft, non-tender, nondistended. MUSCULOSKELETAL: Right lower extremity in a immobilizer. No bleeding NEUROLOGICAL: Awake and alert. No obvious cranial nerve deficits. 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 Patient is stable continue postoperative care with physical therapy, wound care, DVT prophylaxis with Lovenox, incentive spirometry and pain management with Lortab and IV morphine. Acute on chronic anemia secondary to acute blood loss. Sl improved to 7.6 status post blood transfusion. Think it is dilutional since patient is hemodynamically stable repeat H&H in the morning Hypertension. EKG tracing interpreted by me with sinus bradycardia with PVC. BP elevated restart Norvasc. Give as needed IV Vasotec and clonidine Anxiety and depression. Restart home medication once confirmed. Nursing staff instructed to verify home meds Rheumatoid arthritis. Restart prednisone but will hold Humira She also has dementia and hard of hearing which makes communication difficult. Chronic kidney disease stage III. Improved. Avoid nephrotoxins. Discontinue IV fluids. XR with left base mild consolidation and tiny effusion. No resp sxs. IS and nebs likely atelectasis monitor for infection) Discharge Planning: Awaiting [place] acceptance
[2017-11-11] MEDS: Enoxaparin Inj 40 MG/0.4 ML Syringe SQ SCH (12:39)
--- NOTE | 2017-11-11 13:51 | P.DS ---
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 She has been complaining of right hip pain especially with activity and difficulty ambulating since she had surgery in March 2017. No recent fall. She was seen by her orthopedist yesterday and was referred to the emergency department for surgical repair. She underwent right hip removal of implant deep open (intramedullary nail and screw) with conversion of previous surgery to total hip arthroplasty. Patient is seen in the recovery room, she is awake. She has early dementia and hard of hearing so history mainly taken from her daughter. Discussed with recovery room nurse, patient has been hemodynamically stable received 1350 mL crystalloid and EBL of 400 mL. 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 Patient is stable continue postoperative care with physical therapy, wound care, DVT prophylaxis with Lovenox, incentive spirometry and pain management with Lortab and IV morphine. Acute on chronic anemia secondary to acute blood loss. Sl improved to 7.6 status post blood transfusion. Think it is dilutional since patient is hemodynamically stable repeat H&H in the morning Hypertension. EKG tracing interpreted by me with sinus bradycardia with PVC. BP elevated restart Norvasc. Give as needed IV Vasotec and clonidine Anxiety and depression. Restart home medication once confirmed. Nursing staff instructed to verify home meds Rheumatoid arthritis. Restart prednisone but will hold Humira She also has dementia and hard of hearing which makes communication difficult. Chronic kidney disease stage III. Improved. Avoid nephrotoxins. Discontinue IV fluids. XR with left base mild consolidation and tiny effusion. No resp sxs. IS and nebs likely atelectasis monitor for infection) - Time Spent with Patient Total time spent providing and/or coordinating discharge services: - Quality: VTE Deep Vein Thrombosis/Pulmonary Embolism Present on Admission: No Exam Vital signs: Vital Signs 11/10/17 16:07 11/10/17 16:23 11/10/17 20:00 Temperature 98.5 F 97.6 F 97.5 F L Pulse Rate 83 81 77 Respiratory Rate 20 20 18 Blood Pressure 137/65 120/59 L 161/64 H Pulse Oximetry 95 96 11/10/17 23:13 11/11/17 03:23 11/11/17 08:00 Temperature 97.3 F L 97.1 F L 97.8 F Pulse Rate 69 76 74 Respiratory Rate 17 17 18 Blood Pressure 171/74 H 188/78 H 151/72 H Pulse Oximetry 96 94 L 96 Intake & Output 11/10/17 11/11/17 11/11/17 18:59 06:59 18:59 Intake Total 0 / 0 240 / 240 Balance 0 / 0 240 / 240 Weight 47.1 kg Intake: Oral 240 / 240 Intake (Blood Product) Amt 0 / 0 Rbc As-3 Leukoreduced Unit 0 / 0 [id number] Other: # Voids 1 # Urine Diapers 2 Date of Last Bowel Movement 11/10/17 # Bowel Movements 0 Narrative: GENERAL: Well-developed and well-nourished in no distress. She is hard of hearing SKIN: Warm and dry. CARDIOVASCULAR: Regular rate and rhythm. RESPIRATORY: No accessory muscle use. Clear to auscultation. Breath sounds equal bilaterally. GASTROINTESTINAL: Abdomen soft, non-tender, nondistended. MUSCULOSKELETAL: Right lower extremity in a immobilizer. No bleeding NEUROLOGICAL: Awake and alert. No obvious cranial nerve deficits. Results Procedures completed during hospitalization: right hip removal of implant deep open (intramedullary nail and screw) with conversion of previous surgery to total hip arthroplasty Labs on day of discharge: Labs from last 24 hours 11/11/17 11/11/17 11/10/17 06:19 06:19 08:02 Hgb 7.6 L Hct 23.3 L Sodium 143 Potassium 4.1 Chloride 110 H Carbon Dioxide 26.8 Anion Gap 6 BUN 24 H Creatinine 1.20 H Estimated GFR 43 L Random Glucose 96 Calcium 8.7 Magnesium 2.5 D MTS Gel Crossmatch See Detail - Impressions ITS Impressions Chest X-Ray 11/08/17 17:49 CONCLUSION: Mild consolidation and tiny effusion at the left lung base. Hip X-Ray 11/09/17 00:00 CONCLUSION: Postsurgical changes as above. Discharge Plan - Discharge Disposition Patient Disposition: [facility] In[facility] - Discharge Condition Condition: Stable - Discharge Order Discharge Orders: Discharge Order (Routine); Ordered 11/09/17 Ordered By: Olegario Domingo - Discharge Details Anticipated Discharge Date: 11/10/17 Discharge Comment: F/U in the office as previously scheduled with Dr. Zapata or SARAH Moctezuma - Physicians Team Primary Care Provider: Venancio Bautista Attending Provider: Tushar Oliveira Other Providers: Sean Zapata MD
--- NOTE | 2017-11-11 14:08 | P.PNOP ---
Subjective Interval history: The patient is somnolent today and resting comfortably. Physical Exam Vital signs: Vital Signs 11/10/17 16:07 11/10/17 16:23 11/10/17 20:00 Temperature 98.5 F 97.6 F 97.5 F L Pulse Rate 83 81 77 Respiratory Rate 20 20 18 Blood Pressure 137/65 120/59 L 161/64 H Pulse Oximetry 95 96 11/10/17 23:13 11/11/17 03:23 11/11/17 08:00 Temperature 97.3 F L 97.1 F L 97.8 F Pulse Rate 69 76 74 Respiratory Rate 17 17 18 Blood Pressure 171/74 H 188/78 H 151/72 H Pulse Oximetry 96 94 L 96 Intake & Output 11/10/17 11/11/17 11/11/17 18:59 06:59 18:59 Intake Total 0 / 0 240 / 240 Balance 0 / 0 240 / 240 Weight 47.1 kg Intake: Oral 240 / 240 Intake (Blood Product) Amt 0 / 0 Rbc As-3 Leukoreduced Unit 0 / 0 [id number] Other: # Voids 1 # Urine Diapers 2 Date of Last Bowel Movement 11/10/17 # Bowel Movements 0 Narrative: The right hip is dressed and clean. There is mild swelling. There is no drainage. The patient has a knee immobilizer on. She has no tenderness about her calf. There is no swelling in the pretibial region. Results - Labs CBC & Chem 7: 11/11/17 06:19 11/11/17 06:19 Laboratory Results - last 24 hr 11/10/17 11/11/17 11/11/17 08:02 06:19 06:19 Hgb 7.6 L Hct 23.3 L Sodium 143 Potassium 4.1 Chloride 110 H Carbon Dioxide 26.8 Anion Gap 6 BUN 24 H Creatinine 1.20 H Estimated GFR 43 L Random Glucose 96 Calcium 8.7 Magnesium 2.5 D MTS Gel Crossmatch See Detail - Procedures right hip removal of implant deep open (intramedullary nail and screw) with conversion of previous surgery to total hip arthroplasty Assessment and Plan - Problem List (1) Closed subcapital fracture of femur Code(s): S72.019A - Unspecified intracapsular fracture of unspecified femur, initial encounter for closed fracture Status: Acute Qualifiers: Encounter type: initial encounter Laterality: right Qualified Code(s): S72.011A - Unspecified intracapsular fracture of right femur, initial encounter for closed fracture (2) History of total right hip replacement Code(s): Z96.641 - Presence of right artificial hip joint Status: Acute - Assessment and Plan POD #2, right hip removal of implant with conversion of previous surgery to total hip arthroplasty 1. WBAT RLE 2. Lovenox followed by ASA for DVT prophylaxis 3. The patient was transfused yesterday with stable hematocrit. 4. No dressing changes. First dressing change in the office. 5. Anticipatory discharge to [facility] today. 6. F/U in the office with Dr. Zapata or SARAH Moctezuma as previously scheduled.
[2017-11-12] MEDS ORDERED: Enoxaparin Inj 30 MG/0.3 ML Syringe SQ SCH (13:30)
--- NOTE | 2017-11-14 17:29 | P.DS ---
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 She has been complaining of right hip pain especially with activity and difficulty ambulating since she had surgery in March 2017. No recent fall. She was seen by her orthopedist yesterday and was referred to the emergency department for surgical repair. She underwent right hip removal of implant deep open (intramedullary nail and screw) with conversion of previous surgery to total hip arthroplasty. Patient is seen in the recovery room, she is awake. She has early dementia and hard of hearing so history mainly taken from her daughter. Discussed with recovery room nurse, patient has been hemodynamically stable received 1350 mL crystalloid and EBL of 400 mL. All other systems reviewed negative DS: Diagnosis - Discharge Diagnosis (1) Closed subcapital fracture of femur Status: Acute (2) History of total right hip replacement Status: Acute DS: Medications - Discharge Medications Prescriptions: enoxaparin [Lovenox] 40 mg SUB-Q DAILY 10 Days #10 ml hydrocodone-acetaminophen [[place]] 1 - 2 tab PO Q4-6H PRN #50 tab PRN Reason: Acute Pain DS: Summary Hospital Course: The patient was admitted to the hospital for failure of a RIGHT intramedullary nail fixation for a previous inotropic fracture. The patient had the hardware removed and a RIGHT total hip arthroplasty performed. The patient's surgery went well without complication. The patient is weightbearing as tolerated on the RIGHT lower extremity. The patient is on Lovenox followed by aspirin for DVT prophylaxis. The patient was discharged to a [facility] facility for [facility]. The patient will follow up in the office with Dr. Zapata or SARAH Moctezuma as previously scheduled. - Time Spent with Patient Total time spent providing and/or coordinating discharge services: - Quality: VTE Deep Vein Thrombosis/Pulmonary Embolism Present on Admission: No Exam Narrative: see previous progress note Results Procedures completed during hospitalization: right hip removal of implant deep open (intramedullary nail and screw) with conversion of previous surgery to total hip arthroplasty - Impressions ITS Impressions Chest X-Ray 11/08/17 17:49 CONCLUSION: Mild consolidation and tiny effusion at the left lung base. Hip X-Ray 11/09/17 00:00 CONCLUSION: Postsurgical changes as above. Discharge Plan - Discharge Disposition Patient Disposition: [facility] Inpatient - Discharge Condition Condition: Stable - Discharge Order Discharge Orders: Discharge Order (Routine); Ordered 11/09/17 Ordered By: Olegario Domingo - Discharge Details Anticipated Discharge Date: 11/10/17 Discharge Comment: F/U in the office as previously scheduled with Dr. Zapata or SARAH Moctezuma - Physicians Team Primary Care Provider: Venancio Bautista Attending Provider: Tushar Oliveira Other Providers: Sean Zapata MD
== END 2017-11-11 18:00 ==
LOC: NEPC 15:37 → NEDA 20:47 → N07 23:13 → N06 11-09 14:27
PROVIDERS: ADMIT Internal Medicine; ATTEND Internal Medicine